=== PATIENT | female | born 1985 | race Caucasian/White ===

== ENCOUNTER → 2018-05-28 | Day surgery (SDC) | payer BC ==
[2018-05-13 10:07] VITALS: BMI 19.0
[~2018-05-28] VITALS: Ht 162.6 cm; Wt 52.7 kg
[~2018-05-28] MED LIST: ATROPINE SULFATE 0.1 MG/ML 5ML SYR IV PRN; BUPIVACAINE 0.5 % 5 MG/1 ML PF 10ML VIAL ONE; CEFAZOLIN 2000MG IV PUSH 15 ML IV SCH; DEXAMETHASONE SOD INJ 4 MG/ML VIAL ONE; EpHEDrine SULFATE INJ 50 MG/ML AMP IV PRN; FENTANYL CITRATE INJ 50 MCG/1 ML 2 ML VIAL ONE; FLUMAZENIL 0.1 MG/1 ML 10 ML VIAL IV PRN; GLYCOPYRROLATE INJ 0.2 MG/ML VIAL ONE; HYDROmorphone INJ 0.5 MG/0.5 ML SYR IV PRN; KETOROLAC TROMETHAMINE 30 MG/ML VIAL ONE; LACTATED RINGER'S 1000ML 1,000 ML IV SCH; LACTATED RINGER'S 1000ML 500 ML IV SCH; LARYING-O-JET KIT (LTA) ONE; LIDOCAINE HCL 2% 2 ML VIAL (20MG/ML) ONE; MIDAZOLAM HCL 1 MG/ML 2ML VIAL ONE; NALOXONE HCL 0.4 MG/1 ML VIAL/CARP IV PRN; NEOSTIGMINE METHYLSULFATE 5 MG/5 ML SYR ONE; ONDANSETRON INJ 2 MG/ML 2 ML VIAL IV PRN; ONDANSETRON INJ 2 MG/ML 2 ML VIAL ONE; OXYC-57 PO; OXYCODONE/ACETAMINOPHEN 5-325 TAB PO PRN; PHENYLEPHRINE HCL INJ 10 MG/ML VIAL ONE; PRENTAB26 PO; PROMETHAZINE HCL INJ 12.5 MG in SODIUM CHLORIDE 0.9% 50ML 50 ML IV PRN; PROPOFOL IV EMULSION 10 MG/ML 20 ML VIAL ONE; ROCURONIUM BROMIDE 10 MG/ML 5 ML VIAL ONE; SCOPOLAMINE 1.5 MG TDSY TD ONE; SODIUM CHLORIDE 0.9% 1000ML 1,000 ML IV SCH
[2018-05-28 08:41] VITALS: BP 144/85; PULSE 99; TEMP 36.6; O2SAT 99; Ht 162.6 cm; Wt 52.7 kg
--- NOTE | 2018-05-28 10:05 | History & Physical Bridge Note ---
H&P Re-Evaluation Bridge Note: I have examined the patient, reviewed the History & Physical and in the interval since the performance of the History & Physical I have noted the following changes of clinical significance: Ultrasound confirmed hernia, plan to proceed with laparoscopic right inguinal hernia repair, possible left. No changes noted
--- NOTE | 2018-05-28 12:15 | [facility] Post Operative Brief Note ---
Immediate Operative Summary Operative Date May 28, 2018. Pre-Operative Diagnosis Right inguinal hernia Post-Operative Diagnosis Incarcerated right femoral hernia, preperitoneal pelvic cyst Procedure(s) Performed Laparoscopic right femoral hernia repair (TEP converted to ALBERTO), preperitoneal pelvic cyst excision Surgeon Mirella Epstein DO Refueling Ramp Attendant Surgeon(s) Rajni Burt, PAC Estimated Blood Loss 6 mL Findings Consistent with Post-Op Diagnosis incarcerated right femoral hernia; small pelvic cyst Specimens Preperitoneal pelvic cyst Drains None Anesthesia Type General Complication(s) none Disposition Accompanied Pt To Recover: no Disposition: Recovery Room / PACU
--- NOTE | 2018-05-28 12:25 | [facility] Operative Report ---
Operative Report Operative Date May 28, 2018. Pre-Operative Diagnosis Right inguinal hernia Post-Operative Diagnosis Incarcerated right femoral hernia; preperitoneal pelvic cyst Procedure(s) Performed Laparoscopic right femoral hernia repair (TAP converted to ALBERTO); laparoscopic excision preperitoneal pelvic cyst Surgeon Mirella Epstein DO Hand Tier Surgeon(s) Rajni Burt, PAC Estimated Blood Loss 6 mL Findings During balloon dissection the peritoneum tore. Incarcerated right femoral hernia discovered and reduced. There was also a 2 cm pelvic cyst that was preperitoneal which was excised. Pro-unit assembler mesh was placed, peritoneum closed with running 2-0 Vicryl suture. Specimens Preperitoneal pelvic cyst Drains None Anesthesia General Complication(s) None Disposition Recovery Room / PACU Indications 32-year-old female with ultrasound proven fat-containing right inguinal hernia, plan for laparoscopic right inguinal hernia repair, possible left. The risks of the procedure were discussed, all questions were answered, and the patient agreed to proceed with surgery as planned. Description of Procedure The patient was properly identified, consented, and taken to the operating room where she was placed in the supine position. General endotracheal anesthesia was induced. SCDs and a safety belt were placed. A zamora catheter was placed. Preoperative antibiotics were administered. The patient's groins and abdomen were prepped and draped in the standard sterile fashion. Surgical timeout was performed and all parties were in agreement that this was the correct patient and procedure to be performed and we continued as planned. A transverse infraumbilical incision was made to the left of midline with electrocautery and deepened down to the fascia with blunt dissection. A transverse incision was made in the anterior rectus sheath on the left. The rectus muscle was pulled laterally exposing the posterior rectus sheath. A large Leonora was used to bluntly dissect the preperitoneal space down to the pubic symphysis. This was then replaced with a laparoscopic preperitoneal dissection balloon, which was inflated under direct visualization and held in place for approximately 30 seconds. This was then removed and the preperitoneal space was insufflated with carbon dioxide which the patient tolerated without incident. Two 5 mm ports were then placed in the midline. At this time we discovered that the peritoneum had torn but we proceeded with the ports we had in place for the time being. It tore in a linear fashion vertically along the paramedian line. Dissection started on the right, beginning laterally at the anterior superior iliac spine. Mauricio's ligament was then dissected medially. The cord structures were circumferentially dissected. A moderate size incarcerated right femoral hernia was identified. During the dissection the round ligament was divided incidentally and hemostasis was controlled. The contralateral side was not addressed. Progrip mesh with a biologic film backing was placed on the right and covered the direct, indirect, and femoral spaces. During the procedure it was also discovered that there was a preperitoneal pelvic cyst that was identified. This was excised, placed in an Endo Catch bag , and removed through the infraumbilical port. It was sent as specimen. At this point we switched out to a 5 mm 30 degree camera and 5 mm ports were placed in the left upper quadrant, the right upper quadrant, in the right paramedian position. The peritoneal tear was then closed using a running 2-0 Vicryl suture. The abdomen was inspected and no damage from trocar placement was noted, the ports were removed, and the abdomen and preperitoneal space were allowed to collapse. The anterior rectus sheath fascia was closed with 3-0 Vicryl suture. The skin of all 6 port sites were closed with 4-0 Monocryl subcuticular suture , and Dermabond was placed over the incisions. The patient was extubated in the operating room and taken to the PACU for recovery without apparent incident. All sponge, instrument, and needle counts were correct at the conclusion of the procedure. The patient tolerated the procedure well. The physician's quality control assistant was present and scrubbed for the entire the procedure. She was essential in positioning the patient, prepping and draping, retraction and exposure, driving the laparoscope, closure the incisions, placement of the dressings. I attest to the content of the Intraoperative Record and any orders documented therein. Any exceptions are noted below.
--- NOTE | 2018-05-28 12:29 | Discharge Instructions ---
Discharge Instructions Date of Service May 28, 2018. Admission Reason for Admission: Right Inguinal Hernia Discharge Discharge Diagnosis / Problem: Right Inguinal Hernia Discharge Goals Goal(s): Decrease discomfort, Improve function Activity Recommendations Activity Limitations: as noted below Lifting Limitations: no more than 10 pounds Exercise/Sports Limitations: until after follow-up appointment May Resume Sexual Activity: after follow-up appointment Shower/Bathe: tomorrow Driving or Machine Use: resume 1 day after discharge . Instructions / Follow-Up Instructions / Follow-Up You have surgical glue, Dermabond, over your incisions. You may shower tomorrow , but please do not soak or scrub your incisions. Please follow-up with Dr. Epstein in the General Surgery Clinic in 1-2 weeks. Please call the clinic at [phone] to make an appointment if you do not have one already. Please call the clinic with any questions or concerns. Current Hospital Diet Patient's current hospital diet: Discharge Diet Recommended Diet: Regular Diet Procedures Procedures Performed: Laparoscopic right femoral hernia repair (TEP converted to ALBERTO), preperitoneal pelvic cyst excision Pending Studies Studies pending at discharge: yes List of pending studies: Pathology report. Medical Emergencies . Who to Call and When: Medical Emergencies: If at any time you feel your situation is an emergency, please call 911 immediately. . Non-Emergent Contact Non-Emergency issues call your: Primary Care Provider, Surgeon Call Non-Emergent contact if: temperature is above 101.5, your pain is not controlled, wound has increased drainage, wound has increased redness . "Provider Documentation" section prepared by Rajni Burt. .
--- NOTE | 2018-05-28 13:02 | Anesthesiology Progress Note ---
Anesthesia Post Op Note Date & Time May 28, 2018 at 13:02 Vital Signs Pain Intensity: 0 Vital Signs Past 12 Hours Date Time Temp Pulse Resp B/P (MAP) Pulse Ox O2 Delivery O2 Flow Rate FiO2 05/28/18 12:55 69 14 136/88 100 Room Air 05/28/18 12:45 72 14 137/87 100 Oxymask 10 05/28/18 12:35 69 14 134/86 100 Oxymask 05/28/18 12:28 36.1 100 16 130/75 100 Oxymask 10 05/28/18 08:41 36.6 99 16 144/85 (104) 99 Room Air Notes Mental Status: alert / awake / arousable, participated in evaluation Pt Amnestic to Procedure: Yes Nausea / Vomiting: adequately controlled Pain: adequately controlled Airway Patency, RR, SpO2: stable & adequate BP & HR: stable & adequate Hydration State: stable & adequate Anesthetic Complications: no major complications apparent
[2018-05-28 13:15] VITALS: BP 137/80; PULSE 71; TEMP 36.8; O2SAT 98
[2018-05-28 13:45] VITALS: BP 127/81; PULSE 72; TEMP 36.8; O2SAT 100
== END | disposition home or self-care (01) ==
LOC: C.ACU 07:41
PROVIDERS: ATTEND Surgery
DX: K41.30 Unilateral femoral hernia, with obstruction, without gangrene, not specified as recurrent (principal); K66.8 Other specified disorders of peritoneum; Z85.828 Personal history of other malignant neoplasm of skin; Z87.891 Personal history of nicotine dependence